=== PATIENT | male | born 1945 | race Caucasian/White ===

== ENCOUNTER → 2017-03-07 15:25 | Outpatient (CLI) | payer MEDICARE, OTHER | END | disposition home or self-care (01) | LOC: D.CT 15:25 | DX: R55 Syncope and collapse (principal) ==

== ENCOUNTER 2017-07-18 12:21 | Emergency (ER) | payer MEDICARE, OTHER ==
[2017-07-18 12:45] LABS: BASOPHILS 0.2 % (0-2); EOSINOPHILS 2.4 % (0-7); HEMATOCRIT 28.6 % (42.0-54.0); HEMOGLOBIN 9.1 g/dL (13.5-17.5); IMMATURE GRANULOCYTES 0.2 % (0-5); LYMPHOCYTES 23.9 % (15-50); MCH 27.4 pg (26.0-34.0); MCHC 31.8 g/dL (31.0-37.0); MCV 86.1 fL (80.0-100.0); MEAN PLATELET VOLUME 10.4 fL (7.4-10.4); MONOCYTES 8.1 % (2-11); NEUTROPHILS 65.2 % (40-80); PLATELET COUNT 243 10x3/uL (130-400); RBC 3.32 10x6/uL (4.20-6.10); RDW 14.5 % (11.5-14.5); WBC 5.9 10x3/uL (4.8-10.8)
[2017-07-18 13:28] LABS: ANION GAP 19.8 mmol/L (8-16); BILIRUBIN - TOTAL 0.63 mg/dL (0.2-1.3); CALCIUM 9.1 mg/dL (8.5-10.1); CARBON DIOXIDE 25.5 mmol/L (21.0-32.0); CREATININE - SERUM 1.6 mg/dL (0.6-1.3); POTASSIUM - SERUM 5.3 mmol/L (3.5-5.1); PROTEIN - SERUM 7.3 g/dL (6.4-8.2)
== END 2017-07-18 15:54 | disposition home or self-care (01) ==
LOC: D.ER 12:21
PROVIDERS: Emergency Medicine
DX: E86.0 Dehydration (principal); R55 Syncope and collapse; I45.10 Unspecified right bundle-branch block; E11.9 Type 2 diabetes mellitus without complications

== ENCOUNTER → 2017-10-17 08:17 | Outpatient (CLI) | payer MEDICARE, OTHER | END | disposition home or self-care (01) | LOC: D.US 08:17 | DX: D64.9 Anemia, unspecified (principal); K59.00 Constipation, unspecified ==

== ENCOUNTER 2017-12-01 11:44 | Inpatient (IN) | payer MEDICARE, OTHER ==
[~2017-12-01] VITALS: Ht 175.3 cm; Wt 72.6 kg
[2017-12-01] VITALS (9 sets, daily range): BP systolic 100–168; BP diastolic 70–83; BMI 28.1
--- NOTE | ~2017-12-01 | CN ---
PATIENT NAME:LEIF CAICEDO MEDICAL RECORD: [id number] : 49 LOCATION:D. D.2116 ADMIT DATE: 12/01/17 ACCOUNT: [id number] CONSULTING PHYSICIAN: MARLEY GUTIERREZ MD REFERRING PHYSICIAN: DONNY MONTGOMERY MD DATE OF CONSULTATION: 12/01/2017 CONSULT REQUESTING PHYSICIAN: Gilbert Werner MD REASON FOR CONSULTATION: Vent management. HISTORY OF PRESENT ILLNESS: Mr. Caicedo is a 72-year-old gentleman who is now orally intubated and unresponsive, sedated. The history was taken by talking to Dr. Werner as well as reviewing the patient's note. The patient was brought into the ER with full heart arrest at rate of 20s. The patient was hypotensive and the patient was intubated. Atropine and transcutaneous pacing were tried and they were not working. Also, in the ER, the patient was hyperkalemic. The patient was taken to the cardiac lab clerk and permanent pacemaker was placed. REVIEW OF THE SYSTEMS: Mainly in the history of present illness. PAST MEDICAL HISTORY: 1. Hypertension. 2. Coronary artery disease. 3. Gastroesophageal reflux disease. 4. Hyperlipidemia. SURGICAL HISTORY: Not obtainable. Now, he is status post cardiac cath and permanent pacemaker placement. ALLERGIES: No known drug allergies. MEDICATIONS: Arista Power was reviewed. PERSONAL AND SOCIAL HISTORY: The detail is not obtainable. FAMILY HISTORY: Not obtainable. There are no family members available to talk. CHEST RADIOGRAPH: There is no acute infiltrate and no consolidation. The ET tube is in good position. LAB DATA: CBC; WBC 7.9, hemoglobin 9.1, hematocrit 29.9, and platelet count is 184. Chemistry; sodium 137, potassium 6.8, BUN 24, creatinine 1.6, serum glucose is 421. IMPRESSION: 1. Acute hypoxic respiratory failure secondary to #2. 2. Cardiac arrest. 3. Syncope secondary to cardiac arrest, bradycardia. 4. Hyperkalemia. 5. Status post pacemaker placement. 6. Gastroesophageal reflux disease. 7. Hyperglycemia. 8. Poor diabetic control. 9. Acute renal failure. CONSULT REPORT [id number] LEIF CAICEDO RECOMMENDATION: 1. Start him on IV fluid. Check stat BMP. If he is still hyperkalemic, we will correct it. 2. Sliding scale for intensive control of blood sugar level. 3. DVT and stress ulcer prevention. 4. Followup labs and chest radiograph. Dr. Werner, thank you for involving me in the care of Mr. Caicedo. TRANSINT:[id number] Voice Confirmation ID: [id number] DOCUMENT ID: [id number] MARLEY GUTIERREZ MD at 1340 CC: GILBERT WERNER MD [id number] DICTATION DATE: 12/01/17 1608 CYBER REVERSE ENGINEER: 12/01/17 1707 DIS IN 12/03/17 [facility] [address] [place] [address]
--- NOTE | ~2017-12-01 | HEMODYNAMI ---
PATIENT:LEIF CAICEDO MEDICAL RECORD: [id number] : 49 LOCATION:[facility] D.2301 ADMISSION DATE: 12/01/17 Generatedon:12/01/201715:31 Patient name: LEIF CAICEDO Patient #: [id number] SSN: DO B: 1945 Date of study: 12/01/2017 Page: Of Hemodynamic Procedure Report Patient Data Patient Demographics Procedure consent was obtained First Name: LEIF Gender: Male Last Name: MARIFER : 1945 Patient #: [id number] Age: 72 year(s) Race: Unknown Additional ID: [id number] Contact details [address]: [address] [place] [address] State: [place] City: [place] Zip code: [address] Past Medical History Allergies Allergen Reaction Date Comments Reported Other allergy 12/01/2017 BEEF AND PORK Admission Admission Data Admission Date: 12/01/2017 Admission Time: 15:13 Admit Source: Emergency department Room #: D.2301 Procedure Procedure Types Cath Procedure Diagnostic Procedure LHC LHC w/Coronaries w/Grafts Temporary Pacemaker PPM/ICD PPM Dual Implant Procedure Description Procedure Date Procedure Date: 12/01/2017 Procedure Start Time: 13:46 Procedure End Time: 15:29 Procedure Staff Name Function Gilbert Owusu MD Performing Physician Jewels Em RT Tread Cutter Miguel Azul RN Nurse Laz Goodwin RT Tread Cutter Annamaria Castillo RT Monitor Hector Hinojosa RT Scrub Catalina Good CRNA Additional personnel Procedure Data Cath Procedure Fluoroscopy Diagnostic fluoroscopy Total fluoroscopy Time: time: 10.6 min 10.6 min Diagnostic fluoroscopy Total fluoroscopy dose: dose: 631.35 mGy 631.35 mGy Contrast Material Contrast Material Type Amount (ml) Isovue 300 180 Visipaque 270 20 Entry Location Entry Primary Successful Side Size Upsize Upsize Entry Closure Succes sful Closure Location (Fr) 1 (Fr) 2 (Fr) Remarks Device Remarks Femoral Left 6 Fr Exoseal artery Short Estimated blood loss: 10 ml Diagnostic catheters Device Type Used For End Catheter Placement MULTIPACK JL 4.0 5Fr Left Coronary catheter Angiography MULTIPACK 3DRC 5Fr Right Coronary catheter Angiography MULTIPACK 3DRC 5Fr SVG Angiography catheter MULTIPACK 3DRC 5Fr Internal mammary catheter arteriography MULTIPACK Pigtail 5 Fr LV Angiography catheter MULTIPACK Pigtail 5 Fr Aortic Root catheter Angiography DIAGNOSTIC AR 2 MOD 5 Fr SVG Angiography catheter ([id number]) Procedure Complications No complications Procedure Medications Medication Administration Route Dosage 0.9% NaCl I.V. 100 ml/hr Oxygen 15 l/min Heparin Flush Bag added to field 2 bags (1000units/500ml NS) Lidocaine 2% added to field 20 Versed I.V. 3 mg Versed I.V. 2 mg Benadryl I.V. 25 mg Versed I.V. 2 mg Ancef (1Gm/50ml NS) I.V.P.B 1 g Versed I.V. 2 mg Lidocaine 1% added to field 20 Versed I.V. 2 mg Fentanyl I.V. 75 mcg Refer to Anesthesia Notes for Sedation Medications Hemodynamics Rest Heart Rate: 100 (bpm) Pressure Samples Time Site Value (mmHg) Purpose Heart Use Rate(bpm) 13:11 LV 158/29,50 EDP 113 Gradients Valve Time Site Site Mean SEP/DFP Peak To Heart Use 1 2 (mmHg) (sec/min) Peak Rate (mmHg) (bpm) Aortic 13:12 LV AO 80 Snapshots Pre Cath Intra NCS Post Cath Vital Signs Time Heart Resp SPO2 etCO2 NIBP (mmHg) Rhythm Pain Sedation Rate (ipm) (%) (mmHg) Status Level (bpm) 12:53:07 97 23 98 0 118/74(98) Paced 0 (11) 7(A) , No pain 13:03:28 100 18 100 0 130/70(81) Paced 0 (11) 6(A) , No pain 13:07:40 100 19 100 0 107/69(87) Paced 0 (11) 6(A) , No pain 13:11:46 100 17 100 0 109/66(84) Paced 0 (11) 6(A) , No pain 13:15:54 100 24 100 0 114/64(83) Paced 0 (11) 6(A) , No pain 13:20:04 100 18 100 0 101/62(78) Paced 0 (11) 6(A) , No pain 13:24:03 100 25 100 0 116/70(84) Paced 0 (11) 6(A) , No pain 13:28:11 100 17 100 0 111/67(87) Paced 0 (11) 6(A) , No pain 13:32:19 100 22 100 0 111/65(82) Paced 0 (11) 6(A) , No pain 13:36:23 101 17 100 0 117/71(83) Paced 0 (11) 6(A) , No pain 13:40:31 100 19 100 0 106/67(77) Paced 0 (11) 6(A) , No pain 13:44:30 100 19 100 0 129/78(109) Paced 0 (11) 6(A) , No pain 13:48:40 100 13 100 0 115/74(108) Paced 0 (11) 6(A) , No pain 13:52:48 98 15 100 0 106/68(83) Paced 0 (11) 6(A) , No pain 13:56:54 100 18 100 0 87/63(82) Paced 0 (11) 6(A) , No pain 14:00:57 66 18 100 0 79/46(57) Paced 0 (11) 6(A) , No pain 14:04:57 59 18 100 0 96/53(76) Paced 0 (11) 6(A) , No pain 14:09:01 92 18 100 0 99/57(75) Paced 0 (11) 6(A) , No pain 14:13:07 88 3 100 0 92/56(72) Paced 0 (11) 6(A) , No pain 14:17:08 81 10 100 0 81/57(70) Paced 0 (11) 6(A) , No pain 14:21:49 87 0 100 0 116/66(86) Paced 0 (11) 6(A) , No pain 14:25:57 86 100 0 120/68(89) Paced 0 (11) 6(A) , No pain 14:30:05 88 100 0 123/71(99) Paced 0 (11) 6(A) , No pain 14:34:12 93 19 0 130/75(101) Paced 0 (11) 6(A) , No pain 14:38:22 96 0 133/76(103) Paced 0 (11) 6(A) , No pain 14:42:32 96 0 139/81(110) Paced 0 (11) 6(A) , No pain 14:46:42 96 18 0 149/83(121) Paced 0 (11) 6(A) , No pain 14:50:48 103 0 0 155/96(143) Paced 0 (11) 6(A) , No pain 14:55:04 95 0 157/89(123) Paced 0 (11) 6(A) , No pain 14:59:22 94 18 0 158/86(119) Paced 0 (11) 6(A) , No pain 15:03:40 90 17 0 154/82(119) Paced 0 (11) 6(A) , No pain 15:07:56 90 18 0 154/83(122) Paced 0 (11) 6(A) , No pain 15:12:12 92 18 0 160/87(124) Paced 0 (11) 6(A) , No pain 15:16:30 94 18 0 165/87(128) Paced 0 (11) 6(A) , No pain 15:20:48 94 24 0 165/93(130) Paced 0 (11) 6(A) , No pain 15:25:06 98 18 0 171/96(134) Paced 0 (11) 6(A) , No pain 15:29:26 92 18 0 168/89(128) Paced 0 (11) 6(A) , No pain Medications Time Medication Route Dose Verified Delivered Reason Notes Eff ectiveness by by 12:47:27 Oxygen ETT 15 Miguel Miguel for low 02 l/min Jorge Alberto Azul satserenity RN RN 12:50:17 Lidocaine 2% added 20ml Miguel Miguel for local to vial Lorigan Lorigan anesthetic field GUILLEN RN 12:50:22 0.9% NaCl I.V. 100 Per ml/hr physician 12:50:59 Heparin Flush added 2 Miguel Miguel used for Bag to bags Lorigan Jorge Alberto procedure (1000units/500ml RN RN NS) 12:51:40 Versed I.V. 3mg Miguel Miguel for Lorigan Lorigan sedation RN RN 12:53:49 Versed I.V. 2 mg Miguel Miguel for Lorigan Lorigan sedation RN RN 12:54:21 Benadryl I.V. 25 mg Miguel Miguel Per Lorigan Jorge Alberto physician RN RN 12:58:51 Versed I.V. 2 mg Miguel Miguel for Lorigan Lorigan sedation RN RN 13:09:49 Ancef (1Gm/50ml I.V.P.B 1 g Miguel Miguel Per NS) Jorge Alberto Azul physician RN RN 13:24:50 Versed I.V. 2 mg Miguel Miguel for Lorigan Lorigan sedation RN RN 13:35:24 Lidocaine 1% added 20ml Miguel Miguel for local to vial Lorigan Lorigan anesthetic field x2 RN RN 13:42:43 Versed I.V. 2 mg Miguel Miguel for Lorigan Lorigan sedation RN RN 13:46:32 Fentanyl I.V. 75 Miguel Miguel for mcg Lorigan Lorigan sedation RN RN 13:57:01 Refer to Miguel Miguel for Anesthesia Notes Lorigan Jorge Alberto sedation for Sedation RN RN Medications Procedure Log Time Note 12:30:02 Informed consent obtained and on chart 12:30:05 Admit Source: Emergency department 12:30:30 Annamaria Counts RT(R) sent for patient. Start room use. 12:30:32 Diagnostic Cath status Emergency 12:30:33 Time tracking: Regular hours 12:30:36 Plan of Care:Hemodynamics will remain stable., Cardiac rhythm will remain stable., Comfort level will be maintained., Respiratory function will remain adequate., Patient/ family verbilizes understanding of procedure., Procedure tolerated without complication., Recovers from procedure without complications.. 12:30:44 H&P Date Dictated: 12/01/2017 ER History on chart.. 12:47:27 Oxygen 15 l/min ETT was administered by Miguel Azul RN; for low 02 sats; 12:47:51 TEMPORARY PACE MAKER WAS PLACED IN ED. 12:47:53 Patient received from ED to CCL 3 Alert and oriented. Tansferred to table in Supine position. 12:47:55 Warm blankets applied, and taisha hugger turned on for patient comfort. 12:47:55 Correct patient and procedure confirmed by team. 12:47:56 ECG and BP/O2 sat monitors applied to patient. 12:48:00 Vital chart was started 12:48:01 Baseline sample Acquired. 12:48:32 temporary pacer PLACED in BY dr. Owusu in ED. 12:48:34 Full Disclosure recording started 12:48:34 Pre-procedure instructions explained to patient. 12:48:35 Pre-op teaching completed and patient verbalized understanding. 12:48:38 Family in waiting room. 12:48:39 Patient NPO since Midnight. 12:48:57 Patient allergic to Other allergyBEEF AND PORK 12:49:00 Is the patient allergic to Iodine/contrast media? No. 12:49:05 Is patient on blood thinner?No 12:49:08 Patient diabetic? Yes. 12:49:09 If diabetic: On Metformin? Yes 12:49:14 If on Metformin: Last Dose? 11/30/2017 12:49:38 Previous problem with sedation/anesthesia? No ? 12:49:45 Pre procedure: left dorsailis pedis pulse 1+ Palpable, but thready & weak; easily obliterated 12:50:17 Lidocaine 2% 20ml vial added to field was administered by Miguel Azul RN; for local anesthetic; 12:50:18 IV patent on arrival in left antecubital with 0.9% NaCl at O. 12:50:22 0.9% NaCl 100 ml/hr I.V. was administered by ; Per physician; 12:50:23 Left groin area was prepped with chlora-prep and draped in sterile fashion 12:50:24 Alarms reviewed by R. N. 12:50:25 Sharps counted by scrub and verified by R.N. 12:50:26 --------ALL STOP TIME OUT------ 12:50:26 Final Timeout: patient, procedure, and site verified with staff and physician. All members of the team are in agreement. 12:50:27 Left groin site verified by team. 12:50:33 Physical assessment completed. ASA score P 2 - A patient with mild systemic disease as per Gilbert Owusu MD. 12:50:38 Sedation plan: IV Moderate Sedation Medication:Versed, Fentanyl 12:50:49 Use device set Femoral Dx 12:50:51 ACIST Syringe (94273) opened to sterile field. 12:50:52 Bag Decanter () opened to sterile field. 12:50:53 ACIST Hand Control (67097) opened to sterile field. 12:50:54 ACIST Manifold (45498) opened to sterile field. 12:50:55 Tegaderm 4 x 4 (1626W) opened to sterile field. 12:50:55 Medline Cath Pack ([id number]) opened to sterile field. 12:50:59 Heparin Flush Bag (1000units/500ml NS) 2 bags added to field was administered by Miguel Azul RN; used for procedure; 12:50:59 DIAGNOSTIC WIRE .035 260cm J wire (359763) opened to sterile field. 12:51:00 DIAGNOSTIC Multipack 5Fr catheter set (OG7884) opened to sterile field. 12:51:02 MICROPUNCTURE 4FR Cook (K95450) opened to sterile field. 12:51:40 Versed 3mg I.V. was administered by Miguel Azul RN; for sedation; 12:53:49 Versed 2 mg I.V. was administered by Miguel Azul RN; for sedation; 12:54:21 Benadryl 25 mg I.V. was administered by Miguel Azul RN; Per physician; 12:58:32 Procedure started. 12:58:39 Local anesthetic to left femerol artery with Lidocaine 2% by Gilbert Owusu MD.INITIAL ACCESS ONLY 12:58:51 Versed 2 mg I.V. was administered by Miguel Azul RN; for sedation; 12:59:51 Zero performed for pressure channel P1 12:59:56 Zero performed for pressure channel P1 13:00:28 5Fr J Tip Temporary Pacing Catheter ([id number]) opened to sterile field. 13:00:29 SHEATH 6FR [place] (DCB852) opened to sterile field. 13:00:52 A 6 Fr Short sheath was inserted into the Left Femoral artery 13:02:20 A MULTIPACK JL 4.0 5Fr catheter was advanced over the wire and used for Left Coronary Angiography. 13:04:07 Procedure type changed to Cath procedure, Diagnostic procedure, LHC, LHC w/Coronaries w/Grafts, Temporary Pacemaker, PPM/ICD, PPM Dual Implant 13:05:40 Catheter removed. 13:05:47 A MULTIPACK 3DRC 5Fr catheter was advanced over the wire and used for Right Coronary Angiography. 13:06:35 SHEATH 6FR [place] (SKB570) opened to sterile field. 13:07:39 A MULTIPACK 3DRC 5Fr catheter was advanced over the wire and used for SVG Angiography.TO SENIOR MEDICAL WRITER AND PLV 13:09:49 Ancef (1Gm/50ml NS) 1 g I.V.P.B was administered by Miguel Azul RN; Per physician; 13:10:03 A MULTIPACK 3DRC 5Fr catheter was advanced over the wire and used for Internal mammary arteriography.TO LAD 13:10:26 Catheter removed. 13:12:00 A MULTIPACK Pigtail 5 Fr catheter was advanced over the wire and used for LV Angiography. 13:12:04 LV gram done using MORE 13:12:07 LV hemodynamics recorded. 13:12:11 Injector settings: Ml/sec: 12, Volume: 8, 13:13:16 A MULTIPACK Pigtail 5 Fr catheter was advanced over the wire and used for Aortic Root Angiography. 13:13:36 Catheter removed. 13:20:02 EXOSEAL 6Fr (EX600) opened to sterile field. 13:22:16 A DIAGNOSTIC AR 2 MOD 5 Fr catheter (307802N) was advanced over the wire and used for SVG Angiography. 13:22:22 Catheter removed. 13:22:38 Sheath removed intact; hemostasis achieved with Exoseal to the Left Femoral artery. 13:23:10 Contrast amount:Isovue 300 180ml. 13:23:44 PHYSICIAN SCRUBBED OUT. WILL REPREP PATIENT FOR PERMENANT PACEMAKER. 13:24:08 Left chest area was prepped with chlora-prep and draped in sterile fashion 13:24:50 Versed 2 mg I.V. was administered by Miguel Azul RN; for sedation; 13:35:24 Lidocaine 1% 20ml vial x2 added to field was administered by Miguel Azul RN; for local anesthetic; 13:38:01 Medtronic administrative representative ALEENA JOANNKENNY present for procedure. 13:38:11 Pre sharps counted by scrub and verified by RN: Sutures: 2; Sponges: 5; Stick needles: 4; Skin needles: 2; Blade: 1; Cautery: 1 13:38:14 Grounding pad site Right thigh. 13:38:15 Grounding pad site free from injury. 13:41:25 Use device set NORRED PPM 13:41:31 Stapler Skin 35W Proximate Plus (PMW35) opened to sterile field. 13:41:33 Cautery Tip Solution Consultant opened to sterile field. 13:41:34 Cautery Pushbutton Pencil opened to sterile field. 13:41:35 2-0 Silk 685H opened to sterile field. 13:41:36 2-0 Vicryl Plus UOT196 opened to sterile field. 13:41:45 MICROPUNCTURE 4FR Cook (T59016) opened to sterile field. 13:41:52 MICROPUNCTURE 4FR Cook (K84535) opened to sterile field. 13:42:01 Tegaderm 4 x 4 (1626W) opened to sterile field. 13:42:43 Versed 2 mg I.V. was administered by Miguel Azul RN; for sedation; 13:44:01 --------ALL STOP TIME OUT------ 13:44:03 Final Timeout: patient, procedure, and site verified with staff and physician. All members of the team are in agreement. 13:44:11 Left chest site verified by team. 13:44:24 Physical assessment completed. ASA score P 4 - A patient with severe systemic disease that is a constant threat to life as per Gilbert Owusu MD. 13:44:30 Sedation plan: IV Moderate Sedation Medication:Versed, Fentanyl 13:46:32 Fentanyl 75 mcg I.V. was administered by Miguel Azul RN; for sedation; 13:46:38 Lidocaine 1% was administered to left subclavicular area by Gilbert Owusu MD . 13:47:23 Catalina Good CRNA present and monitoring patient for TIVA. 13:47:30 Sedation plan: TIVA Medication:Propofol 13:48:05 Incision made to left subclavicular area. 13:49:18 Generator pocket made/opened. 13:51:04 Access obtained with 4Fr micropunture. 13:54:09 Access obtained with 4Fr micropunture. 13:57:01 Refer to Anesthesia Notes for Sedation Medications was administered by Miguel Azul RN; for sedation; 13:57:31 Medtronic Advisa MRI PPM Dual Generator A2DR01 opened to sterile field. 13:57:53 Medtronic 5076-45 PPM Lead opened to sterile field. 13:57:53 Medtronic 4074-52 PPM Lead opened to sterile field. 13:57:58 Left subclavian vein accessed with 7Fr Peel Away Sheath. 13:58:00 Left subclavian vein accessed with 7Fr Peel Away Sheath. 13:58:02 Atrial lead inserted and advanced. 13:58:04 Ventricular lead inserted and advanced. 14:00:21 Ventricular lead tested. 14:00:30 Peel-a-way sheath was split and removed. 14:01:15 Temporary pacer turn off 14:03:34 Temporary pacer removed 14:06:48 Atrial lead tested. 14:06:50 Peel-a-way sheath was split and removed. 14:07:06 Atrial lead attachment was completed with 2-0 silk. 14:07:09 Ventricular lead attachment was completed with 2-0 silk. 14:08:14 PPM Dual was attached to lead(s) and inserted into pocket. 14:09:52 Subcutaneous closure was completed with 2-0 vicryl. 14:13:56 Procedure ended.(Physican Out) 14:16:38 Lt Chest incision was dressed with gauze eyepad and tegaderm. 14:16:49 Post sharps counted by scrub and verified by RN: Sutures: 2; Sponges: 5; Stick needles: 4; Skin needles: 2; Blade: 1; Cautery: 1 14:17:10 Fluoroscopy time 10.60 minutes. 14:17:34 Flurop Dose total: 631.35 14:17:34 Fluoroscopy dose: 631.35 mGy 14:17:37 Contrast amount:Visipaque 270 20ml. 14:17:39 Sharps counted by scrub and verified by R.N. 14:17:43 Insertion/operative site no bleeding no hematoma. 14:17:47 Post-op/insertion site Left Femoral artery dressed using a 4 x 4 and Tegaderm. 14:17:53 Post-op/insertion site Left Chest area dressed using a gauze eyepad and tegaderm. 14:18:01 Post left femerol artery:stable, soft, clean and dry 14:18:02 Post Procedure Pulses reassessed and unchanged 14:18:50 Post-procedure physical assessment completed. ASA score P 4 - A patient with severe systemic disease that is a constant threat to life as per Gilbert Owusu MD. 14:19:03 Post procedure rhythm: paced 14:19:09 Estimated blood loss: 10 ml 14:19:11 Post procedure instruction explained to patient.Patient verbalizes understanding. 14:19:11 Patient needs reinforcement of post procedure teaching. 14:24:00 Procedure and supply charges have been captured, reviewed, submitted and are correct. 14:24:04 Procedure Complication : No complications 14:39:13 Parameters-- Generator: Mode: DDDR. Lower Rate: 60bpm. Upper Rate: 130bpm. 14:39:41 Parameters--Ventricular P/R Wave: 20.2mV. Current: 1.2mA; Threshold: 0.7.V; Impedence: 1200OHMS. 14:40:58 Parameters--Atrial P/R Wave: 1.2mV. Current: 3.4mA; Threshold: 3.0V; Impedence: 716OHMS. 14:43:23 PT CONTINUING TO BE HELD IN THE PUBLIC HOUSING MANAGER DUE TO NO BEDS AVALIABLE. 15:24:50 TONY 16FR w/Drainage Bag (295082E) opened to sterile field. 15:29:17 16fr standard tony inserted no resistance clear yellow urine obtained. 15:29:18 Tony intact 15:29:36 Report given to ICU. 15:29:38 Patient transfered to ICU with Stretcher. 15:29:42 Procedure ended. 15:29:42 Full Disclosure recording stopped 15:29:53 End room use (Document Last) 15:31:22 Vital chart was stopped Device Usage Item Name Manufacture Quantity Catalog Hospital Part Current Minimal Lot# / Serial# Number Charge Number Stock Stock Code ACIST Syringe Acist 1 68025 083782 464384 750617 20 (12871) Medical Systems Inc Bag Decanter Microtek 1 2001S 419975 82977 764240 5 () Medical Inc. ACIST Hand Acist 1 51654 348069 902185 680776 5 Control Medical (72545) Systems Inc ACIST Acist 1 81446 140416 756247 541871 5 Manifold Medical (89631) Systems Inc Tegaderm 4 x 3M 2 1626W 830315 026579 750888 5 4 (1626W) Medline Cath Cardinal 1 [id number] 130143 75238 244308 5 [facility] ([id number]) DIAGNOSTIC [facility] 1 027922 802465 809528 360147 30 WIRE .035 260cm J wire (929112) DIAGNOSTIC Cardinal 1 SS7507 141794 47643 798979 30 Multipack 5Fr Health catheter set (VG6101) MICROPUNCTURE Cook Medical 3 H36447 477917 866060 827353 5 4FR Cook (P24468) 5Fr J Tip Jorge 1 [id number] 369644 82780 598026 2 Temporary Lifesciences Pacing Catheter (L25922S2) SHEATH 6FR Terumo 2 TBP581 670061 298315 924797 40 [place] (TSS735) MULTIPACK JL Cardinal 1 083090 5 4.0 5Fr Health catheter MULTIPACK Cardinal 1 649934 5 3DRC 5Fr Health catheter MULTIPACK Cardinal 1 680466 5 Pigtail 5 Fr Health catheter DIAGNOSTIC AR Cardinal 1 [id number] 546050 787147 024542 20 2 MOD 5 Fr Health catheter (723254A) Stapler Skin Unknown 1 PMW35 041108 400078 541463 5 35W Proximate Plus (PMW35) Cautery Tip Microtek 1 [id number] 244322 743695 295628 5 [employer] Cautery Microtek 1 J1193R 783980 30299 808698 5 Pushbutton Medical Inc. Pencil 2-0 Silk 685H Ethicon 1 685H 796247 34645 614731 5 2-0 Vicryl Ethicon 1 BCV205 519191 750439 228837 5 Plus IEM045 Medtronic Medtronic 1 A2DR01 321696 477116 5 SN# [id number] Advisa MRI EXP:2019-02-20 PPM Dual Generator A2DR01 Medtronic Medtronic 1 5076-45 929258 601655 5 SN:[id number] 5076-45 PPM EXP:2019-06-09 Lead Medtronic Medtronic 1 4074-52 835080 965115 5 SN:[id number] 4074-52 PPM EXP:2019-06-28 Lead EXOSEAL 6Fr Cardinal 1 EX600 209427 671424 552919 10 (EX600) Health TONY 16FR Bard 1 [id number] 394054 014519 353508 5 w/Drainage Bag (665125S) Signature Audit Edcouch Stage Time Signature Unsigned Intra-Procedure 12/01/2017 Laz Goodwin RT(R) 3:31:18 PM Signatures Monitor : Annamaria Castillo RT Signature : Date : Time : [facility] [address] [facility] [place] [address]
[2017-12-01 12:41] LABS: BASOPHILS 0.1 % (0-2); EOSINOPHILS 0.4 % (0-7); HEMATOCRIT 28.9 % (42.0-54.0); HEMOGLOBIN 9.1 g/dL (13.5-17.5); IMMATURE GRANULOCYTES 0.4 % (0-5); LYMPHOCYTES 17.4 % (15-50); MCH 29.6 pg (26.0-34.0); MCHC 31.5 g/dL (31.0-37.0); MCV 94.1 fL (80.0-100.0); MEAN PLATELET VOLUME 10.3 fL (7.4-10.4); MONOCYTES 8.1 % (2-11); NEUTROPHILS 73.6 % (40-80); RBC 3.07 10x6/uL (4.20-6.10); RDW 14.3 % (11.5-14.5); WBC 7.9 10x3/uL (4.8-10.8)
[2017-12-01 13:04] LABS: PLATELET COUNT 184 10x3/uL (130-400)
[2017-12-01 13:37] LABS: ALBUMIN 3.2 g/dL (3.4-5.0); ANION GAP 21.3 mmol/L (8-16); BILIRUBIN - TOTAL 0.98 mg/dL (0.2-1.3); CALCIUM 7.9 mg/dL (8.5-10.1); CARBON DIOXIDE 18.5 mmol/L (21.0-32.0); CREATININE - SERUM 1.6 mg/dL (0.6-1.3); PROTEIN - SERUM 5.6 g/dL (6.4-8.2); TROPONIN-I 0.06 ng/mL (0.000-0.060)
[2017-12-01 13:54] LABS: POTASSIUM - SERUM 6.8 mmol/L (3.5-5.1)
[2017-12-01] MEDS ORDERED: GLUCOPHAGE1000 MG PO (16:26)
[2017-12-01] MEDS ORDERED: BAYER CHEWABLE81 MG PO (16:26)
[2017-12-01] MEDS ORDERED: NEXIUM20 MG PO (16:26)
[2017-12-01] MEDS ORDERED: PRINIVIL20 MG PO (16:26)
[2017-12-01] MEDS ORDERED: TANZEUM30 MG/0.5 SC (16:27)
[2017-12-01] MEDS ORDERED: NOVOLIN N100 U/ML (16:29)
[2017-12-01] MEDS ORDERED: NOVOLIN 70/30 110 ML (16:30)
[2017-12-01 16:49] LABS: ANION GAP 17.2 mmol/L (8-16); CALCIUM 7.6 mg/dL (8.5-10.1); CARBON DIOXIDE 20.9 mmol/L (21.0-32.0); CREATININE - SERUM 1.4 mg/dL (0.6-1.3); POTASSIUM - SERUM 5.1 mmol/L (3.5-5.1)
[2017-12-02] VITALS (14 sets, daily range): BP systolic 111–164; BP diastolic 52–69; Ht 175.3 cm; Wt 72.6 kg
[2017-12-02 03:51] LABS: BASOPHILS 0.1 % (0-2); EOSINOPHILS 0.3 % (0-7); HEMOGLOBIN 8.9 g/dL (13.5-17.5); IMMATURE GRANULOCYTES 0.1 % (0-5); LYMPHOCYTES 14.5 % (15-50); MCH 30.2 pg (26.0-34.0); MCHC 31.8 g/dL (31.0-37.0); MCV 94.9 fL (80.0-100.0); MEAN PLATELET VOLUME 10.3 fL (7.4-10.4); MONOCYTES 11.6 % (2-11); NEUTROPHILS 73.4 % (40-80); PLATELET COUNT 157 10x3/uL (130-400); RBC 2.95 10x6/uL (4.20-6.10); RDW 14.6 % (11.5-14.5); WBC 7.1 10x3/uL (4.8-10.8)
[2017-12-02 04:11] LABS: ALBUMIN 3.2 g/dL (3.4-5.0); BILIRUBIN - TOTAL 0.49 mg/dL (0.2-1.3); CARBON DIOXIDE 21.6 mmol/L (21.0-32.0); CREATININE - SERUM 1.2 mg/dL (0.6-1.3); MAGNESIUM - SERUM 1.3 mg/dL (1.8-2.4); PROTEIN - SERUM 5.6 g/dL (6.4-8.2)
[2017-12-02 04:12] LABS: ANION GAP 16.7 mmol/L (8-16); POTASSIUM - SERUM 4.3 mmol/L (3.5-5.1)
[2017-12-03 01:18] VITALS: BP 154/49
[2017-12-03 06:37] VITALS: BP 172/61
[2017-12-03 07:21] LABS: BASOPHILS 0.2 % (0-2); EOSINOPHILS 0.5 % (0-7); HEMOGLOBIN 8.9 g/dL (13.5-17.5); IMMATURE GRANULOCYTES 0.2 % (0-5); LYMPHOCYTES 12.9 % (15-50); MCH 29.4 pg (26.0-34.0); MCV 89.1 fL (80.0-100.0); MEAN PLATELET VOLUME 10.6 fL (7.4-10.4); MONOCYTES 8.8 % (2-11); NEUTROPHILS 77.4 % (40-80); PLATELET COUNT 159 10x3/uL (130-400); RBC 3.03 10x6/uL (4.20-6.10); RDW 14.6 % (11.5-14.5)
[2017-12-03 07:22] LABS: ALBUMIN 3.1 g/dL (3.4-5.0); ANION GAP 14.7 mmol/L (8-16); BILIRUBIN - TOTAL 0.88 mg/dL (0.2-1.3); CALCIUM 8.6 mg/dL (8.5-10.1); CARBON DIOXIDE 22.5 mmol/L (21.0-32.0); CREATININE - SERUM 1.1 mg/dL (0.6-1.3); POTASSIUM - SERUM 4.2 mmol/L (3.5-5.1); PROTEIN - SERUM 6.1 g/dL (6.4-8.2)
[2017-12-03 08:44] VITALS: BP 173/69
[2017-12-03 11:49] VITALS: BP 158/69
[2017-12-03 17:00] VITALS: BP 167/69
== END 2017-12-03 17:10 | disposition home or self-care (01) | DRG 242 ==
LOC: D.ER 11:44 → D.CATH 11:44 → EDSTATUS 13:00 → D.ICU 15:13 → D.M2 12-02 18:19
PROVIDERS: Emergency Medicine; Internal Medicine Cardiovascular Disease; Internal Medicine Pulmonary Disease
PROC: 5A1945Z Respiratory Ventilation, 24-96 Consecutive Hours (ICD-10-PCS; 2017-12-01)
PROC: 05HB33Z Insertion of Infusion Device into Right Basilic Vein, Percutaneous Approach (ICD-10-PCS; 2017-12-01)
PROC: B54MZZA Ultrasonography of Right Upper Extremity Veins, Guidance (ICD-10-PCS; 2017-12-01)
PROC: B2111ZZ Fluoroscopy of Multiple Coronary Arteries using Low Osmolar Contrast (ICD-10-PCS; 2017-12-01)
PROC: B2181ZZ Fluoroscopy of Left Internal Mammary Bypass Graft using Low Osmolar Contrast (ICD-10-PCS; 2017-12-01)
PROC: B2121ZZ Fluoroscopy of Single Coronary Artery Bypass Graft using Low Osmolar Contrast (ICD-10-PCS; 2017-12-01)
PROC: B2151ZZ Fluoroscopy of Left Heart using Low Osmolar Contrast (ICD-10-PCS; 2017-12-01)
PROC: 4A023N7 Measurement of Cardiac Sampling and Pressure, Left Heart, Percutaneous Approach (ICD-10-PCS; 2017-12-01)
PROC: 02HK3JZ Insertion of Pacemaker Lead into Right Ventricle, Percutaneous Approach (ICD-10-PCS; 2017-12-01)
PROC: 0BH17EZ Insertion of Endotracheal Airway into Trachea, Via Natural or Artificial Opening (ICD-10-PCS; principal; 2017-12-01 13:00)
PROC: 0JH606Z Insertion of Pacemaker, Dual Chamber into Chest Subcutaneous Tissue and Fascia, Open Approach (ICD-10-PCS; 2017-12-01 13:00)
PROC: 02H63JZ Insertion of Pacemaker Lead into Right Atrium, Percutaneous Approach (ICD-10-PCS; 2017-12-01 13:00)
DX: I44.2 Atrioventricular block, complete (principal); J96.01 Acute respiratory failure with hypoxia; I46.9 Cardiac arrest, cause unspecified; N17.9 Acute kidney failure, unspecified; I95.9 Hypotension, unspecified; I10 Essential (primary) hypertension; I25.10 Atherosclerotic heart disease of native coronary artery without angina pectoris; K21.9 Gastro-esophageal reflux disease without esophagitis; E78.5 Hyperlipidemia, unspecified; E11.65 Type 2 diabetes mellitus with hyperglycemia

== ENCOUNTER → 2018-01-04 18:23 | Outpatient (CLI) | payer MEDICARE, OTHER ==
[2017-12-02 19:21] VITALS: BMI 28.0
[~2018-01-04 18:23] MED LIST: BAYER CHEWABLE81 MG PO; GLUCOPHAGE1000 MG PO; NEXIUM20 MG PO; NOVOLIN 70/30 110 ML; NOVOLIN N100 U/ML; PRINIVIL20 MG PO; TANZEUM30 MG/0.5 SC
[2018-01-04 20:52] LABS: CHOL - HDL RATIO 4.2 ratio (2.3-4.9); LDL-HDL RATIO 2.4 ratio (1.5-3.5)
== END | disposition home or self-care (01) ==
LOC: D.LABREF 18:23
PROVIDERS: Internal Medicine Cardiovascular Disease
DX: E78.5 Hyperlipidemia, unspecified (principal)

== ENCOUNTER → 2018-02-27 18:27 | Outpatient (CLI) | payer MEDICARE, OTHER ==
[2017-12-02 19:21] VITALS: BMI 28.0
[2018-02-27 19:58] LABS: ALT (SGPT) 24 U/L (10-68); CHOL - HDL RATIO 4.2 ratio (2.3-4.9); CHOLESTEROL, TOTAL 151 mg/dL (0-200); CREATINE KINASE 570 UL (21-232); HDL CHOLESTEROL 36 mg/dL (32-96); LDL CHOLESTEROL 95 mg/dL (0-100); LDL-HDL RATIO 2.6 ratio (1.5-3.5); TRIGLYCERIDE 103 mg/dL (30-200)
[2018-02-27 20:06] LABS: CKMB 1.8 U/L (0.0-3.6)
== END | disposition home or self-care (01) ==
LOC: D.LABREF 18:27
PROVIDERS: Internal Medicine Cardiovascular Disease
DX: E78.5 Hyperlipidemia, unspecified (principal)

== ENCOUNTER → 2018-04-06 16:26 | Outpatient (CLI) | payer MEDICARE, OTHER ==
[2017-12-02 19:21] VITALS: BMI 28.0
[2018-04-06 17:38] LABS: CHOL - HDL RATIO 2.3 ratio (2.3-4.9); LDL-HDL RATIO 0.7 ratio (1.5-3.5)
== END | disposition home or self-care (01) ==
LOC: D.LABREF 16:26
PROVIDERS: Internal Medicine Cardiovascular Disease
DX: E78.5 Hyperlipidemia, unspecified (principal)

== ENCOUNTER 2019-12-25 18:27 | Emergency (ER) | payer MEDICARE, OTHER ==
[~2019-12-25] VITALS: Ht 175.3 cm; Wt 76.5 kg
[2019-12-25 18:31] VITALS: Ht 175.3 cm; Wt 76.5 kg
[2019-12-25 18:47] LABS: BASOPHILS 0.7 % (0-2); EOSINOPHILS 2.6 % (0-7); HEMATOCRIT 35.5 % (42.0-54.0); HEMOGLOBIN 11.7 g/dL (13.5-17.5); IMMATURE GRANULOCYTES 0.3 % (0-5); LYMPHOCYTES 30.7 % (15-50); MCH 31.8 pg (26.0-34.0); MCV 96.5 fL (80.0-100.0); MEAN PLATELET VOLUME 10.6 fL (7.4-10.4); MONOCYTES 8.9 % (2-11); NEUTROPHILS 56.8 % (40-80); PLATELET COUNT 184 10x3/uL (130-400); RBC 3.68 10x6/uL (4.20-6.10); WBC 6.1 10x3/uL (4.8-10.8)
[2019-12-25 18:54] LABS: APTT 24.4 SECONDS (22.8-39.4); CALC OSMOLALITY 289 mosm/kg (275-300); CALCIUM 9.2 mg/dL (8.5-10.1); CARBON DIOXIDE 25.7 mmol/L (21.0-32.0); CHLORIDE - SERUM 104 mmol/L (98-107); CREATININE - SERUM 1.3 mg/dL (0.6-1.3); GLUCOSE 160 mg/dL (74-106); INR 1.07 (0.85-1.17); POTASSIUM - SERUM 4.5 mmol/L (3.5-5.1); PROTIME 13.8 SECONDS (11.6-15.0); SODIUM 142 mmol/L (136-145); UREA NITROGEN 25 mg/dL (7-18); eGFR NON AFRICAN AMERICAN 58 mL/min (90-120)
[2019-12-25 19:11] LABS: ALBUMIN 4.1 g/dL (3.4-5.0); ALKALINE PHOSPHATASE 106 U/L (30-120); ALT (SGPT) 25 U/L (10-68); BILIRUBIN - TOTAL 0.82 mg/dL (0.2-1.3); CKMB 1.6 U/L (0.0-3.6); CREATINE KINASE 73 UL (21-232); MAGNESIUM - SERUM 1.5 mg/dL (1.8-2.4); PROTEIN - SERUM 6.9 g/dL (6.4-8.2); THYROID STIMULATING HORMONE 5.73 uIU/mL (0.36-3.74); TROPONIN-I < 0.017 ng/mL (0.000-0.060)
[2019-12-25 19:42] VITALS: BP 151/60
== END 2019-12-25 19:42 | disposition other institution (70) ==
LOC: D.ER 18:27
PROVIDERS: Family Medicine
DX: I63.9 Cerebral infarction, unspecified (principal); R29.818 Other symptoms and signs involving the nervous system; I10 Essential (primary) hypertension; Z95.1 Presence of aortocoronary bypass graft; E11.9 Type 2 diabetes mellitus without complications; Z79.4 Long term (current) use of insulin; Z95.0 Presence of cardiac pacemaker